=== PATIENT | male | born 1985 | race African-American/Black ===

== ENCOUNTER 2020-01-13 19:49 | Emergency (ER) | payer OTHER ==
[2020-01-13] MEDS ORDERED: Famotidine 20 MG TAB ONE (20:02)
[2020-01-13] MEDS ORDERED: predniSONE 20 MG TAB ONE (20:02)
[2020-01-13] MEDS ORDERED: diphenhydrAMINE 25 MG CAP ONE ×2 (20:02→20:07)
[2020-01-14 11:06] LABS: SARS-CoV-2 MS2 Positive; SARS-CoV-2 N Gene Negative; SARS-CoV-2 S Gene Negative; SARS-CoV-2 orf1ab Negative
== END 2020-01-13 21:39 ==
LOC: EEVIPCON 19:49 → ERS 19:49
DX: T78.1XXA Other adverse food reactions, not elsewhere classified, initial encounter (principal); Z20.828 Contact with and (suspected) exposure to other viral communicable diseases
CPT/HCPCS: 87635; 99283; J7512; Q0163; U0003